=== PATIENT | male | born 1975 | race Caucasian/White ===

== ENCOUNTER 2017-08-14 13:54 | Emergency (ER) | payer OTHER ==
[~2017-08-14] VITALS: Ht 182.9 cm; Wt 92.7 kg
[2017-08-14] MEDS ORDERED: FLUORESCEIN OPHTHALMIC 1 MG STRIP ONE (14:44)
[2017-08-14] MEDS ORDERED: PROPARACAINE OPHTH 0.5%, 15ML ONE (14:44)
[2017-08-14] MEDS ORDERED: PROPARACAINE OPHTH 0.5%, 15ML EACHEYE ONE (15:00)
[2017-08-14] MEDS ORDERED: morphine SULFATE 10 MG/ML, 1ML IVPush ONE (15:00)
[2017-08-14] MEDS ORDERED: FLUORESCEIN OPHTHALMIC 1 MG STRIP EACHEYE ONE (15:00)
[2017-08-14] MEDS ORDERED: ONDANSETRON 2MG/ML, 2ML IVPush ONE (15:00)
[2017-08-14] MEDS ORDERED: MORPHINE SULFATE 4 MG/ML, 1ML ONE (15:24)
[2017-08-14] MEDS ORDERED: ONDANSETRON 2MG/ML, 2ML ONE (15:25)
[2017-08-14] MEDS ORDERED: CIPROFLOXACIN/PMX 400MG/200ML 200 ML IV ONE (16:00)
[2017-08-14] MEDS ORDERED: CEFTRIAXONE PMX 1GM/50ML 0 ML ONE (16:09)
[2017-08-14] MEDS ORDERED: CIPROFLOXACIN/PMX 400MG/200ML 200 ML ONE (16:12)
[2017-08-14 16:43] VITALS: BP 151/60
== END 2017-08-14 16:47 | disposition short-term general hospital (02) ==
LOC: ED 16:19
DX: S02.31XA Fracture of orbital floor, right side, initial encounter for closed fracture (principal); H21.01 Hyphema, right eye; H35.60 Retinal hemorrhage, unspecified eye; I10 Essential (primary) hypertension; X58.XXXA Exposure to other specified factors, initial encounter; Y93.89 Activity, other specified; Y92.89 Other specified places as the place of occurrence of the external cause; Y99.8 Other external cause status
CPT/HCPCS: 70480; 96365; 96375; 99291; J0744; J2270; J2405

== ENCOUNTER 2019-11-23 17:09 | Emergency (ER) | payer OTHER ==
[~2019-11-23] VITALS: Ht 182.9 cm; Wt 93.5 kg
[2019-11-23] MEDS ORDERED: LOSA100T14 PO (17:34)
[2019-11-23] MEDS ORDERED: ATOR10TA9 PO (17:34)
--- NOTE | 2019-11-23 18:14 | NUR ---
ERMD SHAM AT BEDSIDE
[2019-11-23] MEDS ORDERED: SODIUM CHLORIDE FLUSH 10ML SYR IVF ONE (18:30)
[2019-11-23 18:36] LABS: BASOPHILS # (AUTO) 0.06 x10^3/uL (0-0.1); BASOPHILS % (AUTO) 1 % (0-1); EOSINOPHILS # (AUTO) 0.13 x10^3/uL (0-0.4); EOSINOPHILS % (AUTO) 1 % (1-7); LYMPHOCYTES # (AUTO) 1.98 x10^3/uL (1-3.4); LYMPHOCYTES % (AUTO) 18 % (22-44); MD NO; MEAN CORPUSCULAR HGB CONC 33.9 g/dL (33.2-36.2); MEAN CORPUSCULAR VOLUME 91.6 fL (81-97); MEAN PLATELET VOLUME 6.7 fL (7.4-10.4); MONOCYTES # (AUTO) 0.91 x10^3/uL (0.2-0.8); MONOCYTES % (AUTO) 8 % (2-9); NEUTROPHILS # (AUTO) 7.75 x10^3/uL (1.8-6.8); NEUTROPHILS % (AUTO) 72 % (42-75); PLATELET COUNT 300 x10^3/uL (130-400); RED CELL DISTRIBUTION WIDTH 12.6 % (9.4-14.8)
[2019-11-23 18:46] LABS: ALBUMIN 3.2 g/dL (3.4-5.0); ANION GAP 6 mmol/L (5-15); CALCIUM 8.5 mg/dL (8.5-10.1); CHLORIDE 103 mmol/L (98-107); CREATININE 1.24 mg/dL (0.7-1.3)
--- NOTE | 2019-11-23 18:46 | NUR ---
REPORT TO TIFFANIE WOODALL
--- NOTE | 2019-11-23 18:52 | NUR ---
report rec, await further orders.
--- NOTE | 2019-11-23 19:28 | NUR ---
Pt resting quietly, await ct results, no difficulty swallowing, no airway problems, speech clear, spo2 100% ra
[2019-11-23 20:18] VITALS: BP 137/87
[2019-11-24] MEDS ORDERED: OMNIPAQUE 350 MG/ML, 100ML BOTTLE ONE
== END 2019-11-23 20:33 | disposition home or self-care (01) ==
LOC: ED 19:31
DX: L04.0 Acute lymphadenitis of face, head and neck (principal); I10 Essential (primary) hypertension
CPT/HCPCS: 36415; 70491; 80048; 82040; 85025; 99285; Q9967